=== PATIENT | female | born 1965 | race Caucasian/White ===

== ENCOUNTER → 2017-02-28 | Outpatient (CLI) | payer BC ==
[2017-02-28 10:42] LABS: CH 32.1; CHCM 33.4; HCT 39.9 % (34.0-46.0); HDW 2.85; HGB 13.2 gm/dL (11.4-16.0); MCH 31.9 pg (25.0-35.0); MCV 96.6 fL (80.0-100.0); Mean Platelet Volume 7.6; RBC 4.13 m/uL (3.80-5.40); RDW 13.2 % (11.5-15.5)
[2017-02-28 10:43] LABS: Partial Thromboplastin Time 25.2 sec (22.0-30.0); Prothrombin Time 10.2 sec (9.0-12.0)
[2017-02-28 10:48] LABS: ALT 40 U/L (9-52); AST 41 U/L (14-36); Alkaline Phosphatase 115 U/L (38-126); Anion Gap 14 mmol/L; Blood Urea Nitrogen 14 mg/dL (7-17); Carbon Dioxide 23 mmol/L (22-30); Chloride 101 mmol/L (98-107); Glucose 102 mg/dL (74-99); Non-African American GFR(MDRD) >60 (>60 ml/min/1.73 sqM); Sodium 138 mmol/L (137-145); Total Bilirubin 0.7 mg/dL (0.2-1.3); Total Protein 7.9 g/dL (6.3-8.2)
== END | disposition home or self-care (01) ==
LOC: LABPAT 09:55
PROVIDERS: ATTEND Orthopaedic Surgery
DX: Z01.812 Encounter for preprocedural laboratory examination (principal)
CPT/HCPCS: 36415; 80053; 85027; 85610; 85730; 87070